=== PATIENT | female | born 1985 | race Caucasian/White ===

== ENCOUNTER 2019-10-15 13:58 | Emergency (ER) | payer OTHER ==
[~2019-10-15] VITALS: Ht 160 cm; Wt 108.9 kg
[2019-10-15 14:24] LABS: ABSOLUTE BASOPHILS 0.1 thou/uL (0.0-0.2); ABSOLUTE EOSINOPHILS 0.5 thou/uL (0.0-0.7); ABSOLUTE LYMPHOCYTES 2.1 thou/uL (0.8-5.3); ABSOLUTE MONOCYTES 0.4 thou/uL (0.0-1.2); BASOPHILS 0.9 %; EOSINOPHILS 7.5 %; HEMATOCRIT 42.2 % (37.0-47.0); HEMOGLOBIN 14.7 gm/dL (12.0-15.0); LYMPHOCYTES 29.4 %; MCH 31.3 pg (26.0-34.0); MCHC 34.8 g/dL (28.0-37.0); MCV 89.9 fL (80.0-100.0); MONOCYTES 5.8 %; NUCLEATED RBCS 0 /100WBC; PLATELET COUNT* 380 thou/uL (150-400); POLYS 56.4 %; RBC 4.69 mil/uL (4.20-5.00); RDW-CV 13.1 % (10.5-14.5); WBC 7.2 thou/uL (4.0-11.0)
[2019-10-15 14:46] LABS: CALCIUM 8.7 mg/dL (8.5-10.1); CREATININE 0.8 mg/dL (0.6-1.3); POTASSIUM 3.7 mmol/L (3.5-5.1)
[2019-10-15 14:52] LABS: APTT 29.8 Seconds (25.0-31.3)
[2019-10-15 14:59] LABS: ALBUMIN 3.9 g/dL (3.4-5.0); CK-MB MASS 0.9 ng/mL (<0.5-3.6); MAGNESIUM 2.3 mg/dL (1.8-2.4); TOTAL BILIRUBIN 0.3 mg/dL (<0.1-1.0); TOTAL PROTEIN 7.8 g/dL (6.4-8.2)
[2019-10-15] MEDS ORDERED: LEVO-T50 MCG PO (15:39)
--- NOTE | 2019-10-15 16:35 | EKG ---
[place] [address] ELECTROCARDIOGRAM REPORT Name: JLUIS ALCAZAR Room: [facility]#: [id number] Admission: 10/15/19 Attend Phys: Discharge: Date of : 89 Date of Service: 10/15/19 1402 Report #: [id number] THIS REPORT FOR: //name// [facility] ED Test Date: 2019-10-15 Test Time: 14:02:25 Pat Name: JLUIS ALCAZAR Department: Room: Gender: F Confidential Secretary: [place] : 1985 Requested By: Beka Roman Order Number: [id number] MD: Chauncey Jung Measurements Intervals [place] Rate: 84 P: 43 AL: 189 QRS: -15 QRSD: 77 T: 61 QT: 361 QTc: 427 Interpretive Statements Sinus rhythm Borderline left axis deviation No previous ECG available for comparison Electronically Signed On 10-15-2019 16:34:53 CDT by Chauncey Jung [email or web address] <ELECTRONICALLY SIGNED> By: Chauncey Jung MD, [facility] 10/15/19 1634 140 01 Chauncey Jung MD, FACC /EPI
[2019-10-15 16:44] VITALS: BP 135/61
== END 2019-10-15 16:45 | disposition home or self-care (01) ==
LOC: M.ERS 13:58
PROVIDERS: Family Medicine
DX: E03.9 Hypothyroidism, unspecified (principal); R07.89 Other chest pain; R03.0 Elevated blood-pressure reading, without diagnosis of hypertension; E66.9 Obesity, unspecified; Z68.41 Body mass index [BMI] 40.0-44.9, adult